=== PATIENT | female | born 1970 | race Caucasian/White ===

== ENCOUNTER 2017-02-27 22:16 | Emergency (ER) | payer OTHER ==
[2017-02-27] MEDS ORDERED: 0.9 % SODIUM CHLORIDE 1,000 ML IV SCH (22:30)
[2017-02-27] MEDS ORDERED: 0.9 % SODIUM CHLORIDE 1,000 ML IV ONE (22:50)
[2017-02-27 22:57] LABS: BASOPHILS % 0.4 (0.0-1.5); EOSINOPHILS % 6.3 % (0.0-6.8); MEAN CORPUSCULAR HEMOGLOBIN 31.4 pg (28.0-34.0); MEAN CORPUSCULAR VOLUME 96.9 fl (80.0-100.0); MONOCYTES % 7.3 % (0.0-11.0); NEUTROPHILS # 4.5 # k/uL (1.4-7.7)
[2017-02-27 23:12] LABS: eGFR (African) > 60; eGFR (Non-African) > 60
--- NOTE | 2017-02-28 00:11 | ED Physician Documentation ---
Altered Mental Status - HISTORIAN Historian: patient - HPI Stated Complaint: lethargic Chief Complaint: Altered Mental Status Additional Information: pt sent from [facility] c/o lethargy. pt admitted dthere 2 d ago for etoh and percocet and benzodiazepine abuse. she has had prev w/drawl and relapsed. there was concern tonight of xs lethargy Onset: days ago (1) Duration: gradual onset Last known Well Date: 02/28/17 (this is a wasted entry) Last Known Well Time: 06:30 (substance abuse for years) Last known Well Code/Unknown Code: Unknown Context: heavy alcohol intake, drug abuse Cognition is Usually: alert, oriented x3, other (sl lethargic-poss just sleepy) Gait is Usually: walks w/o assistance Associated Symptoms: none - ROS EYES/ENT: denies: problems with vision, sore throat, trouble swallowing CVS/RESP: none GI/: none MS/SKIN/LYMPH: none NEURO/PSYCH: none - PAST HX Past History: other (multi substance abuse mitral valve prolapse neuropathy of hands) Surgeries/Procedures: other (c-sect thryoid biopsy-benign) Allergies/Adverse Reactions: Allergies Allergy/AdvReac Type Severity Reaction Status Date / Time bupropion HCl Allergy Unknown rash, Verified 02/27/17 23:12 [From Wellbutrin] confusion ondansetron HCl AdvReac Headache Verified 02/27/17 23:12 [From Zofran (as hydrochloride)] Home Medications: Ambulatory Orders Medication Instructions Recorded Dicyclomine HCl [Bentyl] 10 mg PO QID PRN 02/28/17 Gabapentin [Gabapentin] 400 mg PO TID 02/28/17 Hydroxyzine HCl [Atarax] 25 mg PO Q8 PRN 02/28/17 Nortriptyline HCl [Nortriptyline 25 mg PO HS 02/28/17 HCl] - SOCIAL HX Smoking History: greater than 1 pack/day Alcohol Use: other (pathologic-1/5 per day) Drug Use: other (percocet and benzodiazepine) - FAMILY HX Family History: no significant history - VITAL SIGNS Vital Signs: Vital Signs Temp Pulse Resp BP Pulse Ox 97.8 F 102 H 20 99/65 97 02/27/17 22:22 02/27/17 23:29 02/27/17 22:22 02/27/17 22:22 02/27/17 23:29 - REVIEWED ASSESSMENTS Nursing Assessment Reviewed: Yes Vitals Reviewed: Yes ED Results Lab/Radiology - Lab Results Lab Results: Lab Results 02/27/17 02/27/17 02/27/17 22:52 22:52 22:51 WBC 6.60 K/ul K/ul (4.00-12.00) RBC 4.16 M/ul M/ul (3.90-5.20) Hgb 13.1 g/dL g/dL (12.0-16.0) Hct 40.3 % % (34.5-46.5) MCV 96.9 fl fl (80.0-100.0) MCH 31.4 pg pg (28.0-34.0) MCHC 32.4 g/dL g/dL (30.0-36.0) RDW 12.9 % % (11.3-14.3) Plt Count 316 K/mm3 K/mm3 (130-400) Neut % (Auto) 67.6 % % (39.0-79.0) Lymph % (Auto) 16.8 % % (16.0-50.0) [place] % (Auto) 7.3 % % (0.0-11.0) Eos % (Auto) 6.3 % % (0.0-6.8) Baso % (Auto) 0.4 (0.0-1.5) Neut # (Auto) 4.5 # k/uL # k/uL (1.4-7.7) Lymph # (Auto) 1.1 # k/uL # k/uL (0.6-4.0) [place] # (Auto) 0.5 # k/uL # k/uL (0.0-0.9) Eos # (Auto) 0.4 # k/uL # k/uL (0.0-0.6) Baso # (Auto) 0.0 # k/uL # k/uL (0.0-0.5) Reactive Lymphs % 1.6 % % (0.0-5.0) Reactive Lymphs # 0.1 # k/uL # k/uL (0.0-0.8) PT 9.8 Seconds Seconds (9.4-11.6) INR 0.93 (0.9-1.2) Sodium 134 mmol/L L mmol/L (136-145) Potassium 3.9 mmol/L mmol/L (3.5-5.1) Chloride 98 mmol/L mmol/L (98-107) Carbon Dioxide 31 mmol/L H mmol/L (22-30) BUN 6 mg/dL L mg/dL (7-17) Creatinine 0.80 mg/dL mg/dL (0.52-1.04) Est GFR ( Amer) > 60 (60 - ) Est GFR (Non-Af Amer) > 60 (60 - ) Glucose 96 mg/dL mg/dL (74-106) Calcium 8.7 mg/dL mg/dL (8.4-10.2) Total Bilirubin 0.3 mg/dL mg/dL (0.2-1.3) AST 27 U/L U/L (15-46) ALT 31 U/L U/L (13-69) Alkaline Phosphatase 66 U/L U/L (38-126) Total Protein 7.1 g/dL g/dL (6.3-8.2) Albumin 3.7 g/dL g/dL (3.5-5.0) Ethyl Alcohol < 10.0 mg/dL mg/dL (0.0-10.0) - Orders Orders: ED Orders Category Date Time Status Assess pulse oximetry Q1H Care 02/27/17 22:29 Active Continuous EKG monitoring Q1H Care 02/27/17 22:29 Active ALCOHOL MEDICAL USE ONLY Routine Lab 02/27/17 22:51 Completed CBC/PLATELET/DIFF Routine Lab 02/27/17 22:52 Completed CMP Routine Lab 02/27/17 22:51 Completed DRUG SCREEN URINE MEDICAL ONLY Routine Lab 02/27/17 Ordered PT-INR Routine Lab 02/27/17 22:52 Completed URINALYSIS Routine Lab 02/27/17 Ordered 0.9 % Sodium Chloride [Normal Saline] 1,000 ml Med 02/27/17 22:30 Ordered IV Q10H EKG WITH COMPARISON Stat Ther 02/27/17 Ordered Altered Mental Status Physical - Physical Exam General Appearance: mild distress (perhaps) Neuro/Psych: none alert, oriented x3, no evidence of acute CVA Cerebellar Exam: nml as tested Peripheral Exam: motor nml, sensation nml HEENT: MARIA G, EOM's intact Neck: normal inspection, supple Respiratory: no resp distress, chest non-tender, breath sounds normal. No: wheezes, rales, rhonchi CVS: reg rate & rhythm Abdomen: non-tender Skin: warm/dry, normal color. No: cyanosis Extremities: non-tender, normal range of motion, no evidence of injury, no edema Discharge Clincal Impression: substance abuse-in rehab, lethargy Referrals: Primary Doctor,No [Primary Care Provider] - 2 Days Comments: pt regained normal alertness-lab is satis she is alert oriented-probably just sleepy Condition: Good Disposition: 01 HOME, SELF-CARE Decision to Admit: NO Decision Time: 00:18
[2017-02-28 00:42] VITALS: BP 121/75
[2017-02-28 05:25] LABS: OCCULT BLOOD,URINE NEGATIVE (NEGATIVE); UROBILINOGEN URINE 0.2 Eu (0.2-1.0)
== END 2017-02-28 00:35 | disposition home or self-care (01) ==
LOC: ED 22:16
DX: R53.83 Other fatigue (principal); F10.20 Alcohol dependence, uncomplicated; F11.10 Opioid abuse, uncomplicated; Z71.41 Alcohol abuse counseling and surveillance of alcoholic; Z71.51 Drug abuse counseling and surveillance of drug abuser
CPT/HCPCS: 80053; 80320; 80377; 81002; 85025; 85610; 93005; J7030; 96360; 99283; G0480; G0481; S1016